=== PATIENT | female | born 1985 | race Caucasian/White ===

== ENCOUNTER 2021-10-30 11:40 | Emergency (ER) | payer OTHER ==
[~2021-10-30] VITALS: Ht 160 cm; Wt 66.7 kg
[2021-10-30 11:46] VITALS: BP 135/94
--- NOTE | 2021-10-30 11:49 | NUR ---
AMBULATED TO BED 8
--- NOTE | 2021-10-30 12:20 | NUR ---
36YO FEMALE PT C/O VAGINAL BLEEDING XTHIS MORNING. STATES CRAMPING 6/10 LOWER ABDOMINAL/PELVIC PAIN. DENIES TAKING MEDICATION FOR PAIN. PT 3RD , A2. LMP September. DENIES N/V/D, CHEST PAIN OR SOB. ABDOMEN NON DISTENDED OR TENDER TO TOUCH, ACTIVE X4. PT AAOX4, NO VISIBLE DISTRESS. RESPIRATIONS EVEN AND UNLABORED. HOB POSITONED PER COMFORT, BED AT LOWEST POSITION , BED RAIL UPX1. HX: DENIES NKA
--- NOTE | 2021-10-30 12:20 | NUR ---
Note undone in EDM - 10/30/21 at 1231 by PHSEP 26YO FEMALE PT C/O INCONSISTENT 06/11 SHARP R FLANK PAIN XLAST NIGHT. PT STATES HX OF KIDNEY STONES W/ S/S. REPORTS SWEATS, CHILLS AND VOMITING X2 LAST NIGHT .VOMIT X1 THIS MORNING , DENIES BLOOD. MILD RELIEF AFTER TAKING TYLENOL. DENIES DYSURIA, DIARRHEA, SOB , ABDOMINAL OR CHEST PAIN. PT AAOX4, NO VISIBLE DISTRESS. RESPIRATIONS EVEN AND UNLABORED. HOB POSITIONED PER COMFORT, BED AT LOWEST POSITION, BED RAIL UP X1. HX: KIDNEY STONES NKA
[2021-10-30 12:24] LABS: BASOPHILS % (AUTO) 0.3 % (0.0-2.0); EOSINOPHILS # (AUTO) 0.2 K/uL (0-0.4); EOSINOPHILS % (AUTO) 1.8 % (0.0-4.0); HEMOGLOBIN 14.4 g/dL (12.0-16.0); LYMPHOCYTES # (AUTO) 1.8 K/uL (2.5-16.5); LYMPHOCYTES % (AUTO) 19.7 % (20.5-51.1); MEAN CORPUSCULAR HEMOGLOBIN 31 pg (27-31); MEAN CORPUSCULAR HGB CONC 35 g/dL (33-37); MEAN CORPUSCULAR VOLUME 89.4 fL (80-94); MONOCYTES # (AUTO) 0.5 K/uL (0.8-1.0); MONOCYTES % (AUTO) 5.9 % (1.7-9.3); NEUTROPHILS # (AUTO) 6.8 K/uL (1.8-7.7); NEUTROPHILS % (AUTO) 72.3 % (42.2-75.2); PLATELET COUNT (AUTO) 240 K/uL (140-450); RED BLOOD CELL COUNT(AUTO) 4.59 MIL/uL (4.20-5.40); RED CELL DISTRIBUTION WIDTH 12.7 % (11.6-13.7); WHITE BLOOD COUNT (AUTO) 9.4 K/uL (4.8-10.8)
--- NOTE | 2021-10-30 12:30 | NUR ---
MD VARELA AT BEDSIDE FOR EVALUATION
--- NOTE | 2021-10-30 12:35 | NUR ---
36/F PRESENTS TO ED WITH C/O LOWER ABDOMINAL CRAMPING AND LIGHT VAGINAL BLEEDING SINCE THIS MORNING. STATES SHE HAD A POSITIVE AT HOME TEST ON SATURDAY, REPORTS APPOINTMENT TO SEE HER PCP IS THIS WEEK. PATIENT STATES SHE HAD TWO MISCARRIAGES LAST YEAR AND REPORTS THIS FEELS SIMILAR. PATIENT DENIES HEADACHE, N/V/D, PATIENT IS [id number].
[2021-10-30 12:59] LABS: APPEARANCE,URINE CLEAR (CLEAR); BILIRUBIN,URINE NEGATIVE (NEGATIVE); BLOOD, URINE 3+ (NEGATIVE); COLOR,URINE AMBER (YELLOW); LEUKOCYTE ESTERASE ,URINE NEGATIVE (NEGATIVE); NITRITE, URINE NEGATIVE (NEGATIVE); UGLUCOSE NEGATIVE (NEGATIVE)
[2021-10-30 13:15] LABS: OTHER CASTS, URINE None Seen /LPF (None Seen); WBC,URINE 0-5 /HPF (0-5)
--- NOTE | 2021-10-30 14:00 | NUR ---
US AT BEDSIDE
[2021-10-30] MEDS ORDERED: ACETAMINOPHEN EXTRA STRENGTH 500 MG TAB PO ONE (15:45)
[2021-10-30] MEDS ORDERED: ACETAMINOPHEN EXTRA STRENGTH 500 MG TAB ONE (15:48)
[2021-10-30 16:17] VITALS: BP 112/69
--- NOTE | 2021-10-30 16:17 | NUR ---
Patient discharged with v/s stable. Written and verbal after care instructions FOR THREATENED MISSCARRIAGE given and explained. Patient verbalized understanding. Ambulatory with steady gait. All questions addressed prior to discharge. Advised to follow up with PMD.
--- NOTE | 2021-10-30 16:30 | NUR ---
The patient's care was reviewed and supervised by Luna Warren RN.
== END 2021-10-30 16:17 | disposition home or self-care (01) ==
LOC: MED 11:40
DX: O20.0 Threatened abortion (principal); Z3A.01 Less than 8 weeks gestation of pregnancy
CPT/HCPCS: 36415; 76817; 81001; 81025; 84702; 85025; 86900; 86901; 99285; Q0092